=== PATIENT | male | born 1990 | race Caucasian/White ===

== ENCOUNTER 2017-12-27 21:43 | Emergency (ER) | payer SELFPAY ==
[~2017-12-27] VITALS: Ht 182.9 cm; Wt 77.1 kg
[2017-12-27 21:49] VITALS: Ht 182.9 cm; Wt 77.1 kg
[2017-12-27 22:20] LABS: BASOPHIL % 0.8 % (0-2); PLATELET COUNT 292 x10^3mcL (130-400); RED CELL DISTRIBUTION WIDTH 13.8 % (11.5-14.5)
[2017-12-27 22:29] LABS: CALCIUM 9.5 mg/dL (8.5-10.1); CHLORIDE SERUM 99 mmol/L (98-107); GFR1 > 60 mL/min; GLUCOSE SERUM 96 mg/dL (74-106); POTASSIUM SERUM 3.5 mmol/L (3.5-5.1); SODIUM SERUM 136 mmol/L (136-145)
[2017-12-27 22:33] LABS: ALBUMIN 4.5 g/dL (3.4-5.0); ALKALINE PHOSPHATASE 61 U/L (46-116); ALT/SGPT 205 U/L (16-63); AST/SGOT 112 U/L (15-37); BILIRUBIN TOTAL 1.4 mg/dL (0.20-1.00); LIPASE 76 IU/L (73-393); TOTAL PROTEIN, SERUM 7.9 g/dL (6.4-8.2)
[2017-12-27 23:20] LABS: AMPHETAMINE QUAL UR POSITIVE
[2017-12-28 00:03] VITALS: BP 125/91
== END 2017-12-28 00:03 | disposition home or self-care (01) ==
LOC: ED 21:43
PROVIDERS: Emergency Medicine
DX: F10.239 Alcohol dependence with withdrawal, unspecified (principal); F15.10 Other stimulant abuse, uncomplicated
CPT/HCPCS: G0480; J2060; J7030

== ENCOUNTER 2018-01-26 11:23 | Emergency (ER) | payer MEDICAID ==
[~2018-01-26] VITALS: Ht 182.9 cm; Wt 93.0 kg
[2018-01-26 11:38] VITALS: BP 155/87; Ht 182.9 cm; Wt 93.0 kg
== END 2018-01-26 13:41 | disposition home or self-care (01) ==
LOC: ED 11:23
DX: S93.401A Sprain of unspecified ligament of right ankle, initial encounter (principal); W18.39XA Other fall on same level, initial encounter; Y93.51 Activity, roller skating (inline) and skateboarding; Y92.89 Other specified places as the place of occurrence of the external cause; Y99.8 Other external cause status
CPT/HCPCS: J1885

== ENCOUNTER 2018-01-30 10:00 | Emergency (ER) | payer MEDICAID ==
[~2018-01-30] VITALS: Ht 182.9 cm; Wt 83.9 kg
[2018-01-30 10:53] VITALS: BP 126/94
== END 2018-01-30 10:53 | disposition home or self-care (01) ==
LOC: ED 10:00
DX: S93.401D Sprain of unspecified ligament of right ankle, subsequent encounter (principal); S90.811D Abrasion, right foot, subsequent encounter; F17.210 Nicotine dependence, cigarettes, uncomplicated; Y93.51 Activity, roller skating (inline) and skateboarding
CPT/HCPCS: 99406